=== PATIENT | female | born 2000 | race Caucasian/White ===

== ENCOUNTER 2021-06-19 12:41 | Emergency (ER) | payer OTHER, SELFPAY ==
--- NOTE | ~2021-06-19 | XR_ITS ---
EXAMINATION: XR TIBIA AND FIBULA, LEFT CLINICAL INFORMATION: Status post trauma with large wound. COMPARISON: None TECHNIQUE: AP and lateral views of the left tibia and fibula were obtained. FINDINGS: The bones and soft tissues are normal. No fracture. No osseous lesions. XR/XR tibia fibula LT 2V IMPRESSION: Unremarkable left tibia and fibula
[2021-06-19 12:48] VITALS: BP 131/84; PULSE 78; RESP 18; TEMP 36.9; O2SAT 100; BMI 24.7
--- NOTE | 2021-06-19 14:44 | PC.NURSE ---
@ [id number] request from ROBERT Patel to call [facility] for possible transfer of this patient Sarah answered and asked to speak to Amanda Patel takes over call right away
--- NOTE | 2021-06-19 14:48 | ED_ITS ---
HPI - Wound/Laceration General Chief Complaint: Wound/Laceration Stated Complaint: lt leg laceration Time Seen by Provider: 06/19/21 14:28 Source: patient and family Mode of arrival: ambulatory Limitations: no limitations History of Present Illness HPI narrative: 21-year-old female with no medical history presents to the ER with an injury to her left lower leg. 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 She thinks the players cleat hit her in the left lower leg and scraped down her leg. It resulted in a large open wound with exposed fat. She was able to put pressure on her leg and bleeding was controlled right away. She has some abrasions above and below the open wound. She reports she is up-to-date on her tetanus shot. She took ibuprofen prior to the game and reports minimal pain at this time. She states the wound is numb. Onset (ago): hour(s) (1) Extremity Location: left: lower leg Place: outdoors Patient tetanus UTD: Yes Context: accidental Associated symptoms: loss of feeling/numbness Treatments prior to arrival: bandage and other (Knee immobilizer) Related Data Allergies Allergy/AdvReac Type Severity Reaction Status Date / Time amoxicillin Allergy Rash Verified 06/19/21 12:48 Review of Systems Review of Systems: Constitutional: No Fever, No Chills Cardiovascular: No Chest Pain, No SOB Respiratory: No Cough, No Sputum Gastrointestinal: No Nausea, No Vomiting Musculoskeletal: No joint pain, + Myalgias Skin: + Skin Lesions, No rash Neuro: No Weakness, + Numbness, No Dizziness, No Headache Psych: + Anxiety/Panic, No Depression Heme/Lymph: + Bruising, No Lymphadenopathy PMFSH Past Medical History Attestation statement: The following information was validated with the patient. Medical History No pertinent past medical history Social History Social History Advance Directives: No Advance Directives Information Provided: No Patient : No Physical Exam Vital Signs: Vital Signs: Last Vital Signs Temp 98.4 F 06/19/21 12:48 Pulse 78 06/19/21 12:48 Resp 18 06/19/21 12:48 BP 131/84 06/19/21 12:48 Pulse Ox 100 06/19/21 12:48 Body Mass Index 24.7 Appearance: Alert. Oriented X3. No acute distress. HEENT: normal inspection CVS: Normal heart rate and rhythm. Pulses normal. Respiratory: No respiratory distress. Skin: Skin warm and dry. Normal skin color. Normal skin turgor. No rashes. Extremities: left lower leg with large 5cm avulsion wound at the proximal anterior lower leg with exposed adipose tissue, complex wound margins with missing skin. no active bleeding. wound is contaminated. no active bleeding. minimal tenderness. no tibial plateau tenderness. There are multiple superficial abrasions and ecchymosis consistent with cleat [place] above and below the wound. She is able to bend and extend her left knee. Neurovascularly intact distally. Neuro: Oriented X 3. No motor deficit. Gait not tested due to pain Course Course Course Narrative: 21-year-old female college [employer] presents to the ER with a left lower leg wound-wound is consistent with a complex skin avulsion with a large amount of missing skin and exposed adipose tissue. Given the extent of the wound she would benefit from Plastic surgery evaluation. She attends was her poly technique in-situ and will need follow-up in the was her area. She may need complex repair and or skin grafting in the future. Will call [facility] to see if they will accept her for Plastic surgery evaluation in the ER. Reevaluation(s) Reevaluation #1: Patient has been accepted to [facility] ER for plastic surgery evaluation. Dr. Rodrigues to accept. Patient and family agree and consent to transfer. Wound was irrigated extensively with normal saline. Multiple pine needles were removed from the wound. X-rays have been taken but results are not completed yet. Will call the patient with the results in route to EMS. She has been given a dose of Keflex and Percocet for pain. Discharge Plan Discharge Clinical Impression: Avulsion of skin Patient Disposition: [facility] Transfer Details: [facility] Instructions: Skin Avulsion (ED) Additional Instructions: Your being transferred to [facility] for further evaluation of your complex, large skin avulsion tear left lower leg. Present directly to [facility] upon discharge, they are expecting you. Present the paperwork to the triage desk X-rays were taken, however when another results at this time. Do not bear weight on your left leg. Use the crutches provided. If there are any abnormalities with your x-ray we will call you.
--- NOTE | 2021-06-19 14:49 | PC.NURSE ---
Face sheet faxed to [phone] @ this time.
[2021-06-19] MEDS: cephALEXin 500 MG CAPSULE PO (14:50)
[2021-06-19] MEDS: HYDROcodone Bit/Acetam 5/325 TABLET 1 TAB PO (15:27)
--- NOTE | 2021-06-19 15:34 | PC.NURSE ---
MEDICATED WITH KEFLEX AND VICODIN PRIOR TO DC, PT/FAMILY AWARE PT TO REMAIN NPO
== END 2021-06-19 15:34 | disposition short-term general hospital (02) ==
PROVIDERS: Emergency Provider Emergency Medicine
DX: S81.812A Laceration without foreign body, left lower leg, initial encounter (principal); M79.605 Pain in left leg; R20.0 Anesthesia of skin; X58.XXXA Exposure to other specified factors, initial encounter; Y93.9 Activity, unspecified; Y92.9 Unspecified place or not applicable; Y99.9 Unspecified external cause status
CPT/HCPCS: 73590; 99285